=== PATIENT | male | born 1950 | race Caucasian/White ===

== ENCOUNTER 2018-04-24 20:58 | Emergency (ER) | payer OTHER, MEDICARE ==
--- NOTE | 2018-04-24 22:02 | EDPHY ---
General Time Seen by Provider: 04/24/18 21:57 Narrative: CHIEF COMPLAINT: Leg pain and swelling HISTORY OF PRESENT ILLNESS: Patient presents per private vehicle with complaints of right leg pain and swelling. Symptoms started this morning. Pain is 5/10 when ambulating. Minimal at rest. Constant duration. Primary located at the proximal calf and in the midportion of the right hamstring. He had 1st thought it was a muscle cramp but is not gone away. He describes it as feeling as though he is sat on the edge of a bed. Pain is worse with dorsiflexion. He notes some swelling with that as well. No redness or warmth. No fever. No chest pain shortness of breath. He has a history of hemochromatosis. He just flew back from [place] yesterday evening. No previous venous thrombolic event. No other associated complaints or modifying factors. REVIEW OF SYSTEMS: 10 systems were reviewed and negative with the exception of the elements mentioned in the history of present illness. PCP: Dr. Gaytan SPECIALISTS: Dr. Snigh PAST MEDICAL HISTORY: Hemochromatosis, BPH, arthritis PAST SURGICAL HISTORY: No recent surgical history. SOCIAL HISTORY: Nonsmoker. 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 Travels frequently between [facility]. FAMILY HISTORY: Noncontributory EXAMINATION: Vitals: Triage VS reviewed General Appearance: Alert, no distress. Well appearing. Head: normocephalic, atraumatic Eyes: Pupils equal and round, no conjunctival pallor or injection ENT, Mouth: Mucous membranes moist Neck: Normal inspection, supple, non-tender Respiratory: Lungs are clear to auscultation Cardiovascular: Regular rate and rhythm. No murmur. Symmetric DP and PT pulses 2+. Neurological: A&O, nonfocal, normal gait. Sensory symmetric in lower extremities. Skin: Warm and dry, no rash. No petechiae or purpura. No cellulitis. Extremities: Mild asymmetry of the right lower extremity less than 3 cm. Mild edema to the right lower extremity involving the calf. There is pain with passive dorsiflexion of the right ankle. No palpable cords. No erythema. Psychiatric: Mood and affect normal DIFFERENTIAL DIAGNOSES: Including but not limited to DVT, muscle spasm, muscle strain, superficial thrombus MDM: 9:50 p.m. Right lower extremity pain with mild swelling. There is nonpitting edema. No signs of cellulitis or abscess. Pain with passive dorsiflexion but no palpable cords. He did recently fly back from [place]. I do feel he warrants ultrasound right lower extremity. I have also ordered laboratory studies. He has no chest pain or shortness of breath. Vital signs are within normal limits. With no SIRS criteria. 11:15 p.m. Notified by radiologist Dr. Keys. Lower extremity ultrasound is positive for DVT on the right calf. There is no involvement of the popliteal or femoral veins. 11:30 p.m. Patient re-evaluated. We discussed his positive DVT study. We discussed commencement of Xarelto therapy. I reviewed his medications and discussed his Celebrex. He did not take any Celebrex today and he knows that he may not take this in conjunction with Xarelto. We discussed the need to contact his primary care physician in the morning for outpatient care and management of this. We discussed strict ED precautions for any chest pain or shortness of breath. He is comfortable this plan. He is ambulatory and well-appearing. Discharged stable condition. SUPERVISION: Patient was independently examined, but I discussed the case with my secondary supervising physician Dr. Carty CONSULTATION: None - Diagnostics Imaging Results: Imaging Impressions Extremity Venous Study 04/24/18 21:55 Impression: Positive deep venous thrombosis involving the right calf paired gastrocnemius veins. Findings and recommendations discussed with Emergency Department physician, Gonzalez Dubon PAC at 23:15 hour, 04/24/2018. Final report concurs with initial preliminary interpretation. - History Smoking Status: Never smoked - Objective Vital Signs: Initial Vital Signs Temperature (C) 98.1 F 04/24/18 21:02 Heart Rate 89 04/24/18 21:02 Respiratory Rate 18 04/24/18 21:02 Blood Pressure 148/84 H 04/24/18 21:02 O2 Sat (%) 94 04/24/18 21:02 Allergies/Adverse Reactions: No Known Allergies Allergy (Unverified 04/24/18 21:01) Home Medications: Medication Instructions Recorded Tamsulosin HCl [Flomax] 0.4 mg PO DAILY 11/17/14 Celebrex 04/24/18 Cialis 04/24/18 Rivaroxaban [Xarelto 15mg (*)] 15 mg PO BID #42 tab 04/24/18 Laboratory Results: Laboratory Results 04/24/18 22:11 04/24/18 04/24/18 04/24/18 22:24 22:11 22:11 WBC 6.83 10^3/uL 10^3/uL (3.80-9.50) RBC 5.15 10^6/uL 10^6/uL (4.40-6.38) Hgb 16.6 g/dL g/dL (13.7-17.5) POC Hgb 16.0 gm/dL gm/dL (13.7-17.5) Hct 47.6 % % (40.0-51.0) POC Hct 47 % % (40-51) MCV 92.4 fL fL (81.5-99.8) MCH 32.2 pg pg (27.9-34.1) MCHC 34.9 g/dL g/dL (32.4-36.7) RDW 13.0 % % (11.5-15.2) Plt Count 210 10^3/uL 10^3/uL (150-400) MPV 9.1 fL fL (8.7-11.7) Neut % (Auto) 74.5 % H % (39.3-74.2) Lymph % (Auto) 18.4 % % (15.0-45.0) [place] % (Auto) 5.3 % % (4.5-13.0) Eos % (Auto) 1.2 % % (0.6-7.6) Baso % (Auto) 0.3 % % (0.3-1.7) Nucleat RBC Rel Count 0.0 % % (0.0-0.2) Absolute Neuts (auto) 5.09 10^3/uL 10^3/uL (1.70-6.50) Absolute Lymphs (auto) 1.26 10^3/uL 10^3/uL (1.00-3.00) Absolute Monos (auto) 0.36 10^3/uL 10^3/uL (0.30-0.80) Absolute Eos (auto) 0.08 10^3/uL 10^3/uL (0.03-0.40) Absolute Basos (auto) 0.02 10^3/uL 10^3/uL (0.02-0.10) Absolute Nucleated RBC 0.00 10^3/uL 10^3/uL (0-0.01) Immature Gran % 0.3 % % (0.0-1.1) Immature Gran # 0.02 10^3/uL 10^3/uL (0.00-0.10) PT 13.2 SEC SEC (12.0-15.0) INR 0.98 (0.83-1.16) APTT 27.6 SEC SEC (23.0-38.0) POC Sodium 142 mEq/L mEq/L (135-145) POC Potassium 3.9 mEq/L mEq/L (3.3-5.0) POC Chloride 107 mEq/L mEq/L (97-110) POC BUN 23 mg/dL mg/dL (7-23) POC Creatinine 1.1 mg/dL mg/dL (0.7-1.3) POC Glucose 106 mg/dL H mg/dL (70-100) Point of Care Test Results: Chemistry 04/24/18 22:24 POC Sodium 142 mEq/L mEq/L (135-145) POC Potassium 3.9 mEq/L mEq/L (3.3-5.0) POC Chloride 107 mEq/L mEq/L (97-110) POC BUN 23 mg/dL mg/dL (7-23) POC Creatinine 1.1 mg/dL mg/dL (0.7-1.3) POC Glucose 106 mg/dL H mg/dL (70-100) ISTAT H&H 04/24/18 22:24 POC Hgb 16.0 gm/dL gm/dL (13.7-17.5) POC Hct 47 % % (40-51) Departure - Departure Disposition: Home, Routine, Self-Care Clinical Impression: Deep vein thrombosis (DVT) of right lower extremity Qualifiers: Affected thrombotic vein of extremity: other lower extremity vein Chronicity: acute Qualified Code(s): I82.491 - Acute embolism and thrombosis of other specified deep vein of right lower extremity Condition: Good Instructions: Rivaroxaban (By mouth), Deep Vein Thrombosis (ED) Additional Instructions: 1. Do not take your celebrex any further 2. You have been given here 1st dose of anticoagulation, Xarelto in the emergency department. He will need to feel your prescription for the remaining dosing, starting tomorrow morning. Please discussed this with primary care physician tomorrow morning to discuss ongoing anticoagulation and management of your DVT. 3. Return to emergency department immediately for any chest pain or shortness of breath. Referrals: Manny Wu MD [Primary Care Provider] - As per Instructions Physician,Emergency DeptMD [Medical Doctor] - As per Instructions Prescriptions: Rivaroxaban [Xarelto 15mg (*)] 15 mg PO BID #42 tab
[2018-04-24 22:26] LABS: PLATELET COUNT 210 10^3/uL (150-400)
[2018-04-24 22:34] LABS: INR 0.98 (0.83-1.16); PROTIME(PATIENT) 13.2 SEC (12.0-15.0)
[2018-04-24] MEDS ORDERED: RIVAROXABAN 15 MG TAB PO ONE (23:37)
[2018-04-25 00:10] VITALS: BP 135/74
== END 2018-04-25 00:12 | disposition home or self-care (01) ==
DX: I82.491 Acute embolism and thrombosis of other specified deep vein of right lower extremity (principal)
CPT/HCPCS: 82435-PO; 82565-PO; 82947-PO; 84132-PO; 84295-PO; 84520-PO; 85014-PO

== ENCOUNTER → 2018-07-22 | Outpatient (CLI) | payer OTHER, MEDICARE | LOC: FIMAGING 12:24 | PROVIDERS: ATTEND Family Medicine | DX: I82.491 Acute embolism and thrombosis of other specified deep vein of right lower extremity (principal) ==

== ENCOUNTER → 2018-09-04 | Outpatient (CLI) | payer OTHER, MEDICARE | LOC: FIMAGING 09:57 | PROVIDERS: ATTEND Family Medicine | DX: I82.591 Chronic embolism and thrombosis of other specified deep vein of right lower extremity (principal) ==